=== PATIENT | female | born 1945 | race Caucasian/White ===

== ENCOUNTER → 2018-02-14 | Outpatient (CLI) | payer OTHER ==
[~2018-02-14] MED LIST: COMBIGAN EYE DR10 ML OP; LEVAQUIN 500 M500 MG PO; LEVOTHYROXINE 0.1 MG PO; LISINOPRIL10 MG PO
== END ==
LOC: M.ULTRA 02-08 11:34
DX: E04.2 Nontoxic multinodular goiter (principal); I65.23 Occlusion and stenosis of bilateral carotid arteries; I25.10 Atherosclerotic heart disease of native coronary artery without angina pectoris

== ENCOUNTER 2019-11-21 18:03 | Inpatient (IN) | payer OTHER ==
[~2019-11-21] VITALS: Ht 165.1 cm; Wt 87.4 kg
[2019-11-21 18:08] VITALS: BP 182/133
[2019-11-21] MEDS ORDERED: CELEXA 10 MG TA10 M1 PO (18:12)
[2019-11-21] MEDS ORDERED: TRAVATAN Z5 ML OPHTHALMIC (18:13)
[2019-11-21] MEDS ORDERED: CRANBERRY200 MG PO (18:13)
[2019-11-21 18:26] LABS: ABSOLUTE BASOPHILS 0.1 thou/uL (0.0-0.2); ABSOLUTE EOSINOPHILS 0.2 thou/uL (0.0-0.7); ABSOLUTE LYMPHOCYTES 3.3 thou/uL (0.8-5.3); ABSOLUTE MONOCYTES 0.8 thou/uL (0.0-1.2); ABSOLUTE NEUTROPHILS 4.2 thou/uL (1.6-8.1); BASOPHILS 0.7 %; EOSINOPHILS 2.5 %; HEMATOCRIT 39.5 % (37.0-47.0); HEMOGLOBIN 13.5 gm/dL (12.0-15.0); LYMPHOCYTES 37.9 %; MCH 29.3 pg (26.0-34.0); MCHC 34.1 g/dL (28.0-37.0); MCV 85.9 fL (80.0-100.0); MONOCYTES 9.6 %; MPV 8.6 fl. (7.2-11.1); NUCLEATED RBCS 0 /100WBC; PLATELET COUNT* 352 thou/uL (150-400); POLYS 49.3 %; RBC 4.61 mil/uL (4.20-5.00); RDW-CV 13.9 % (10.5-14.5); WBC 8.6 thou/uL (4.0-11.0)
[2019-11-21 18:34] LABS: CALCIUM 8.8 mg/dL (8.5-10.1); CREATININE 0.8 mg/dL (0.6-1.3); POTASSIUM 3.6 mmol/L (3.5-5.1)
[2019-11-21 18:35] LABS: APTT 27.4 Seconds (25.0-31.3); PROTIME 10.5 Seconds (9.20-11.50)
[2019-11-21 18:44] LABS: ALBUMIN 4.1 g/dL (3.4-5.0); MAGNESIUM 1.6 mg/dL (1.8-2.4); TOTAL BILIRUBIN 0.2 mg/dL (<0.1-1.0); TOTAL PROTEIN 7.7 g/dL (6.4-8.2)
[2019-11-21 20:00] VITALS: BP 183/86
[2019-11-21 20:20] VITALS: BP 157/84
[2019-11-21 20:30] VITALS: BP 158/73
[2019-11-21] MEDS ORDERED: EUTHYROX125 MCG PO (21:09)
[2019-11-21] MEDS ORDERED: PRESERVISION A1 EAC2 PO (21:12)
[2019-11-21] MEDS ORDERED: SUPER THERAVIT1 EACH PO (21:12)
[2019-11-21] MEDS ORDERED: SLOW-MAG64 M1 PO (21:12)
[2019-11-21] MEDS ORDERED: PROPRANOLOL 1010 MG PO (21:15)
[2019-11-21 21:57] VITALS: BP 142/69
[2019-11-21 22:29] VITALS: BP 142/69
[2019-11-22] VITALS (7 sets, daily range): BP systolic 131–183; BP diastolic 55–86
[2019-11-22 09:14] LABS: CHOLESTEROL 201 mg/dL (<200); HDL CHOLESTEROL 47 mg/dL (>40); LDL CHOLESTEROL 138 mg/dL (<100); TC:HDL 4.3 Ratio (Not establshd); TRIGLYCERIDE 81 mg/dL (<150); VLDL 16 mg/dL (<40)
[2019-11-22 09:19] LABS: SERUM ASSESSMENT Clear
--- NOTE | 2019-11-22 13:25 | EKG ---
[place] [address] ELECTROCARDIOGRAM REPORT Name: BARRY NAVAS Room: [address] ADM IN .R.#: [id number] Admission: 11/21/19 Attend Phys: Woody Parks Discharge: Date of : 45 Date of Service: 11/21/19 1808 Report #: [id number] THIS REPORT FOR: //name// [facility] ED Test Date: 2019-11-21 Test Time: 18:08:31 Pat Name: BARRY NAVAS Department: Room: [facility] Gender: F Center Medical And Lab Director: : 1945 Requested By: Steve Valles Order Number: [id number] MD: Markell Zapata Measurements Intervals [place] Rate: 161 P: [place]: QRS: 82 QRSD: 88 T: -62 QT: 295 QTc: 483 Interpretive Statements Atrial fibrillation with rapid V-rate Borderline right axis deviation Repolarization abnormality, prob rate related Baseline wander in lead(s) V6 Compared to ECG 11/03/2016 12:44:20 Early repolarization now present Sinus rhythm no longer present Electronically Signed On 11-22-2019 13:23:46 CDT by Markell Zapata [email or web address] <ELECTRONICALLY SIGNED> By: Markell Zapata MD, FAC 11/22/19 1323 1808 1808 Markell Zapata MD, [facility] /EPI
--- NOTE | 2019-11-22 13:29 | EKG ---
[place] [address] ELECTROCARDIOGRAM REPORT Name: BARRY NAVAS Room: [address] ADM IN .R.#: [id number] Admission: 11/21/19 Attend Phys: Woody Parks Discharge: Date of : 45 Date of Service: 11/22/1936 Report #: [id number] THIS REPORT FOR: //name// [facility] Test Date: 2019-11-22 Test Time: 08:36:08 Pat Name: BARRY NAVAS Department: Room: [address] Gender: F Regional Sales Manager: : 1945 Requested By: Ellen Louise Order Number: [id number] Reading MD: Markell Zapata Measurements Intervals [place] Rate: 63 P: 57 FL: 178 QRS: 73 QRSD: 107 T: 40 QT: 426 QTc: 437 Interpretive Statements Sinus rhythm Electronically Signed On 11-22-2019 13:27:33 CDT by Markell Zapata [email or web address] <ELECTRONICALLY SIGNED> By: Markell Zapata MD, [facility] 11/22/19 1327 5 5 Markell Zapata MD, FACC /EPI
--- NOTE | 2019-11-22 14:29 | 2DMMODE ---
[place] [address] 2 D/M-MODE ECHOCARDIOGRAM Name: BARRY NAVAS Room: [address] IN [facility]#: [id number] Admission: 11/21/19 Attend Phys: Woody Parks Discharge: Date of : 45 Date of Service: 11/22/19 1427 Report #: [id number] THIS REPORT FOR: cc: Richmond Rivas John E. DO Liston, Michael J. MD [facility] ~ APPROVED REPORT Study performed: 11/22/2019 10:00:18 EXAM: Comprehensive 2D, Doppler, and color-flow Echocardiogram Patient Location: In-Patient Room #: [facility] Status: routine BSA: 1.95 HR: 63 bpm BP: 159/72 mmHg Rhythm: NSR Other Information Study Quality: Good Indications Atrial Fibrillation 2D Dimensions IVSd: 8.31 (7-11mm) LVOT Diam: 19.72 (18-24mm) LVDd: 48.65 mm PWd: 7.22 (7-11mm) Ascending Ao: 29.85 (22-36mm) LVDs: 28.40 (25-40mm) Aortic Root: 29.97 mm Volumes Left Atrial Volume (Systole) LA ESV Index: 30.40 mL/m2 Aortic Valve AoV Peak Virgil.: 1.63 m/s AO Peak Gr.: 10.65 mmHg LVOT Max P.77 mmHg AO Mean Gr.: 5.66 mmHg LVOT Mean P.72 mmHg LVOT Max V: 1.20 m/s AO V2 VTI: 37.96 cm LVOT Mean V: 0.75 m/s RENETTA (VTI): 2.31 cm2 LVOT V1 VTI: 28.74 [place] [address] 2 D/M-MODE ECHOCARDIOGRAM Name: BARRY NAVAS Room: [address]#: [id number] Admission: 11/21/19 Attend Phys: Woody Parks Discharge: Date of : 45 Date of Service: 11/22/19 1427 Report #: [id number] Mitral Valve E/A Ratio: 1.15 MV Decel. Time: 223.77 ms MV E Max Virgil.: 1.01 m/s MV PHT: 64.89 ms MVA (PHT): 3.39 cm2 TDI E/Lateral E': 7.77 E/Medial E': 7.21 Medial E' Virgil.: 0.14 m/s Lateral E' Virgil.: 0.13 m/s Pulmonary Valve PV Peak Virgil.: 1.09 m/s PV Peak Gr.: 4.73 mmHg Left Ventricle The left ventricle is normal size. There is normal LV segmental wall motion. There is normal left ventricular wall thickness. Left ventricular systolic function is normal. LVEF is 65-70%. Transmitral Doppler flow pattern suggests impaired LV relaxation. Right Ventricle The right ventricle is normal size. The right ventricular systolic function is normal. Atria Left atrium is mildly dilated. Right atrium is mildly dilated. Aortic Valve The aortic valve is normal in structure. No aortic regurgitation is present. There is no aortic valvular stenosis. Mitral Valve The mitral valve is normal in structure. Trace mitral regurgitation. No evidence of mitral valve stenosis. Tricuspid Valve The tricuspid valve is normal in structure. Unable to assess PA pressure. Trace tricuspid regurgitation. Pulmonic Valve The pulmonary valve is normal in structure. There is no pulmonic valvular regurgitation[place] [address] 2 D/M-MODE ECHOCARDIOGRAM Name: BARRY NAVAS Room: [address] IN [facility]#: [id number] Admission: 11/21/19 Attend Phys: Woody Parks Discharge: Date of : 45 Date of Service: 11/22/19 1427 Report #: [id number] The aortic root is normal in size. IVC is normal in size and collapses >50% with inspiration. Pericardium There is no pericardial effusion. <Conclusion> The left ventricle is normal size. There is normal left ventricular wall thickness. Left ventricular systolic function is normal. LVEF is 65-70%. Transmitral Doppler flow pattern suggests impaired LV relaxation. Left atrium is mildly dilated. Right atrium is mildly dilated. Trace mitral regurgitation. Unable to assess PA pressure. Trace tricuspid regurgitation. IVC is normal in size and collapses >50% with inspiration. <ELECTRONICALLY SIGNED> By: Cem Shin MD, FACC 11/22/19 1427 1427 1427 Cem Shin MD, FACC /INF
[2019-11-23] VITALS: BP 126/68
[2019-11-23 03:51] VITALS: BP 122/56
[2019-11-23] MEDS ORDERED: SYNTHROID112 MC1 PO (10:12)
[2019-11-23] MEDS ORDERED: SYNTHROID100 MC1 PO (10:20)
--- NOTE | 2019-11-23 10:58 | EKG ---
[place] [address] ELECTROCARDIOGRAM REPORT Name: BARRY NAVAS Room: [address] ADM IN .R.#: [id number] Admission: 11/21/19 Attend Phys: Woody Parks Discharge: Date of : 45 Date of Service: 11/23/1928 Report #: [id number] THIS REPORT FOR: //name// [facility] Test Date: 2019-11-23 Test Time: 08:28:42 Pat Name: BARRY NAVAS Department: Room: [address] Gender: F Bridge Repairer: : 1945 Requested By: Ellen Louise Order Number: [id number] Renetta MD: Markell Zapata Measurements Intervals [place] Rate: 60 P: 66 LA: 178 QRS: 82 QRSD: 112 T: 45 QT: 434 QTc: 434 Interpretive Statements Sinus rhythm Borderline intraventricular conduction delay Compared to ECG 11/22/2019 08:36:08 No significant changes Electronically Signed On 11-23-2019 10:57:21 CDT by Markell Zapata [email or web address] <ELECTRONICALLY SIGNED> By: Markell Zapata MD, [facility] 11/23/19 1057 7 Markell Zapata MD, [facility] /EPI
[2019-11-23] MEDS ORDERED: ELIQUIS5 MG PO (11:25)
[2019-11-23] MEDS ORDERED: CARDIZEM SR 60M60 MG PO (11:26)
[2019-11-23] MEDS ORDERED: FLECAINIDE ACET50 M2 PO (11:27)
[2019-11-23] MEDS ORDERED: COMBIGAN EYE DR10 ML OPHTHALMIC (11:29)
[2019-11-23 11:31] VITALS: BP 122/56
== END 2019-11-23 13:15 | disposition home or self-care (01) | DRG 309 ==
LOC: M.ERS 18:03 → M.TBA-ER 18:34 → M.2W 18:34
PROVIDERS: Emergency Medicine Emergency Medical Services; Registered Nurse; ADMIT Internal Medicine
DX: I48.0 Paroxysmal atrial fibrillation (principal); D68.69 Other thrombophilia; I10 Essential (primary) hypertension; E03.9 Hypothyroidism, unspecified; H40.9 Unspecified glaucoma; Z79.899 Other long term (current) drug therapy; Z79.01 Long term (current) use of anticoagulants

== ENCOUNTER → 2020-03-14 | Outpatient (CLI) | payer OTHER ==
[~2020-03-14] MED LIST changes: +CARDIZEM SR 60M60 MG PO; +CELEXA 10 MG TA10 M1 PO; +COMBIGAN EYE DR10 ML OPHTHALMIC; +CRANBERRY200 MG PO; +ELIQUIS5 MG PO; +EUTHYROX125 MCG PO; +FLECAINIDE ACET50 M2 PO; +PRESERVISION A1 EAC2 PO; +PROPRANOLOL 1010 MG PO; +SLOW-MAG64 M1 PO; +SUPER THERAVIT1 EACH PO; +SYNTHROID100 MC1 PO; +SYNTHROID112 MC1 PO; +TRAVATAN Z5 ML OPHTHALMIC
== END ==
LOC: M.ULTRA 10:28
PROVIDERS: ATTEND Registered Nurse
DX: I65.23 Occlusion and stenosis of bilateral carotid arteries (principal)

== ENCOUNTER → 2021-01-21 | Outpatient (CLI) | payer OTHER | LOC: M.RAD 10:36 | PROVIDERS: ATTEND Internal Medicine | DX: M47.26 Other spondylosis with radiculopathy, lumbar region (principal); M51.16 Intervertebral disc disorders with radiculopathy, lumbar region; M25.78 Osteophyte, vertebrae; I70.0 Atherosclerosis of aorta ==

== ENCOUNTER → 2021-04-24 | Emergency (ER) | payer OTHER ==
[~2021-04-24] VITALS: Ht 162.6 cm; Wt 88.0 kg
[~2021-04-24] MED LIST changes: +LUMIGAN5 ML OPHTHALMIC
[2021-04-24 13:59] LABS: ABSOLUTE BASOPHILS 0.1 thou/uL (0.0-0.2); ABSOLUTE EOSINOPHILS 0.1 thou/uL (0.0-0.7); ABSOLUTE LYMPHOCYTES 2.3 thou/uL (0.8-5.3); ABSOLUTE MONOCYTES 0.8 thou/uL (0.0-1.2); ABSOLUTE NEUTROPHILS 7.8 thou/uL (1.6-8.1); BASOPHILS 0.7 %; HEMATOCRIT 43.4 % (37.0-47.0); HEMOGLOBIN 14.7 gm/dL (12.0-15.0); LYMPHOCYTES 21.2 %; MCH 29.2 pg (26.0-34.0); MCV 85.9 fL (80.0-100.0); MONOCYTES 6.8 %; MPV 7.6 fl. (7.2-11.1); NUCLEATED RBCS 0 /100WBC; PLATELET COUNT* 448 thou/uL (150-400); POLYS 70.3 %; RBC 5.05 mil/uL (4.20-5.00); RDW-CV 13.9 % (10.5-14.5); WBC 11.1 thou/uL (4.0-11.0)
[2021-04-24 14:10] LABS: CALCIUM 9.3 mg/dL (8.5-10.1); CREATININE 0.8 mg/dL (0.6-1.3); POTASSIUM 4.3 mmol/L (3.5-5.1)
[2021-04-24 14:15] LABS: ALBUMIN 3.9 g/dL (3.4-5.0); TOTAL BILIRUBIN 0.3 mg/dL (<0.1-1.0); TOTAL PROTEIN 7.7 g/dL (6.4-8.2)
[2021-04-24 16:00] VITALS: BP 168/87
--- NOTE | 2021-04-25 11:49 | EKG ---
[place] [address] ELECTROCARDIOGRAM REPORT Name: BARRY NAVAS Room: [facility]#: [id number] Admission: 04/24/21 Attend Phys: Discharge: Date of : 45 Date of Service: 04/24/21 1326 Report #: [id number] THIS REPORT FOR: //name// [facility] ED Test Date: 2021-04-24 Test Time: 13:26:19 Pat Name: BARRY NAVAS Department: Room: Gender: Assistant Professor Of Nursing: [facility] 1945 Requested By: Justin Waters Order Number: [id number] MD: Chema Salinas Measurements Intervals [place] Rate: 105 P: [place]: QRS: 98 QRSD: 174 T: -24 QT: 332 QTc: 439 Interpretive Statements Atrial flutter Ventricular premature complex RBBB and LPFB Inferior infarct, age indeterminate Compared to ECG 11/23/2019 08:28:42 Ventricular premature complex(es) now present Left posterior fascicular block now present Right bundle-branch block now present Myocardial infarct finding now present Sinus rhythm no longer present Electronically Signed On 04-25-2021 11:49:03 CDT by Chema Salinas [email or web address] <ELECTRONICALLY SIGNED> By: Gary Salinas MD, [facility] 04/25/21 1149 1326 1326 Gary Salinas MD, [facility] /EPI
== END ==
LOC: M.ERS 13:16
PROVIDERS: Emergency Medicine
DX: I48.20 Chronic atrial fibrillation, unspecified (principal); Z20.822 Contact with and (suspected) exposure to COVID-19; I10 Essential (primary) hypertension; E03.9 Hypothyroidism, unspecified; Z79.899 Other long term (current) drug therapy

== ENCOUNTER → 2021-05-07 | Outpatient (CLI) | payer OTHER ==
[2021-05-07 12:28] LABS: CALCIUM 9.1 mg/dL (8.5-10.1); CREATININE 0.9 mg/dL (0.6-1.3); POTASSIUM 4.6 mmol/L (3.5-5.1)
== END ==
LOC: M.LAB 12:00
PROVIDERS: ATTEND Registered Nurse
DX: I10 Essential (primary) hypertension (principal)

== ENCOUNTER 2021-08-15 21:58 | Inpatient (IN) | payer OTHER ==
[~2021-08-15] VITALS: Ht 165.1 cm; Wt 88.0 kg
[2021-08-15 22:04] VITALS: BP 169/95
[2021-08-15 23:09] LABS: ABSOLUTE BASOPHILS 0.1 thou/uL (0.0-0.2); ABSOLUTE EOSINOPHILS 0.1 thou/uL (0.0-0.7); ABSOLUTE LYMPHOCYTES 3.2 thou/uL (0.8-5.3); ABSOLUTE NEUTROPHILS 6.8 thou/uL (1.6-8.1); BASOPHILS 0.6 %; EOSINOPHILS 1.3 %; HEMATOCRIT 41.9 % (37.0-47.0); LYMPHOCYTES 28.3 %; MCH 29.2 pg (26.0-34.0); MCHC 33.5 g/dL (28.0-37.0); MCV 86.9 fL (80.0-100.0); MONOCYTES 8.6 %; MPV 7.7 fl. (7.2-11.1); NUCLEATED RBCS 0 /100WBC; PLATELET COUNT* 451 thou/uL (150-400); POLYS 61.2 %; RBC 4.82 mil/uL (4.20-5.00); RDW-CV 13.4 % (10.5-14.5); WBC 11.1 thou/uL (4.0-11.0)
[2021-08-15 23:18] LABS: CREATININE 0.9 mg/dL (0.6-1.3); POTASSIUM 4.3 mmol/L (3.5-5.1)
[2021-08-15 23:23] LABS: ALBUMIN 3.8 g/dL (3.4-5.0); MAGNESIUM 1.7 mg/dL (1.8-2.4); TOTAL BILIRUBIN 0.3 mg/dL (<0.1-1.0); TOTAL PROTEIN 7.4 g/dL (6.4-8.2)
[2021-08-15 23:24] LABS: URINE BILIRUBIN NEGATIVE (Negative); URINE BLOOD NEGATIVE (Negative); URINE CLARITY CLEAR; URINE COLOR YELLOW; URINE GLUCOSE-RANDOM NEGATIVE (Negative); URINE KETONES TRACE (Negative); URINE LEUKOCYTES-REFLEX NEGATIVE (Negative); URINE NITRITE-REFLEX NEGATIVE (Negative); URINE PROTEIN NEGATIVE (Negative); URINE UROBILINOGEN 0.2 E.U./dl (0.2-1.0)
[2021-08-16 04:30] VITALS: BP 135/77
[2021-08-16 06:13] LABS: CALCIUM 9.2 mg/dL (8.5-10.1); CREATININE 0.8 mg/dL (0.6-1.3); MAGNESIUM 1.8 mg/dL (1.8-2.4); POTASSIUM 4.1 mmol/L (3.5-5.1)
[2021-08-16 08:00] VITALS: BP 146/80
--- NOTE | 2021-08-16 12:46 | EKG ---
[place] [address] ELECTROCARDIOGRAM REPORT Name: BARRY NAVAS Room: [address]#: [id number] Admission: 08/16/21 Attend Phys: Woody Parks Discharge: Date of : 45 Date of Service: 08/15/212206 Report #: [id number] THIS REPORT FOR: //name// [facility] ED Test Date: 2021-08-15 Test Time: 22:07:47 Pat Name: BARRY NAVAS Department: Room: [facility] Gender: F Hvac Commercial Salesperson: MARQUISE : 1945 Requested By: Kasia Martinez Order Number: [id number] MD: Chema Salinas Measurements Intervals [place] Rate: 104 P: [place]: QRS: 91 QRSD: 142 T: -11 QT: 375 QTc: 494 Interpretive Statements Atrial fibrillation Paired ventricular premature complexes RBBB and LPFB Compared to ECG 04/24/2021 13:26:19 Atrial flutter no longer present Myocardial infarct finding no longer present Electronically Signed On 08-16-2021 12:46:28 TURBO ELECTRIC OPERATOR by Chema Salinas [email or web address] <ELECTRONICALLY SIGNED> By: Gary Salinas MD, FAC 08/16/21 1246 06 06 Gary Salinas MD, [facility] /EPI
[2021-08-16 14:00] VITALS: BP 133/74
[2021-08-16 20:00] VITALS: BP 150/92
[2021-08-17] VITALS (20 sets, daily range): BP systolic 89–181; BP diastolic 34–98
--- NOTE | 2021-08-17 02:20 | NUR ---
PT RESTING QUIETLY WITH EYES CLOSED, STATES VERY LITTLE SLEEP LAST FEW NIGHTS. CARDIZEM INFUSING AT 5 MG/HR. TELEMETRY SHOWING SR WITH 1ST AVB, PAC AND INTERMITTENT A-FIB. DENIES SOA OR CHEST PAIN. UP TO BSC/BR INDEPENDENTLY.
[2021-08-17 04:24] LABS: HEMATOCRIT 41.2 % (37.0-47.0); HEMOGLOBIN 13.5 gm/dL (12.0-15.0); MCH 28.7 pg (26.0-34.0); MCHC 32.8 g/dL (28.0-37.0); MCV 87.7 fL (80.0-100.0); MPV 8.3 fl. (7.2-11.1); RBC 4.7 mil/uL (4.20-5.00); RDW-CV 13.4 % (10.5-14.5); WBC 9.2 thou/uL (4.0-11.0)
[2021-08-17 04:54] LABS: ALBUMIN 3.5 g/dL (3.4-5.0); CREATININE 0.9 mg/dL (0.6-1.3); MAGNESIUM 1.8 mg/dL (1.8-2.4); POTASSIUM 3.7 mmol/L (3.5-5.1); TOTAL BILIRUBIN 0.4 mg/dL (<0.1-1.0); TOTAL PROTEIN 6.8 g/dL (6.4-8.2)
--- NOTE | 2021-08-17 10:30 | EKG ---
[place] [address] ELECTROCARDIOGRAM REPORT Name: BARRY NAVAS Room: [address]#: [id number] Admission: 08/16/21 Attend Phys: Woody Parks Discharge: Date of : 45 Date of Service: 08/16/21 0008 Report #: [id number] THIS REPORT FOR: //name// [facility] ED Test Date: 2021-08-16 Test Time: 00:08:52 Pat Name: BARRY NAVAS Department: Room: [facility] Gender: F Remote Inpatient Coder: BETH : 1945 Requested By: Kasia Martinez Order Number: [id number] MD: Markell Zapata Measurements Intervals [place] Rate: 90 P: [place]: QRS: 100 QRSD: 136 T: -25 QT: 380 QTc: 465 Interpretive Statements Atrial tachycardia Nonspecific intraventricular conduction delay Compared to ECG 08/15/2021 22:07:47 Intraventricular conduction delay now present rate has slowed Right bundle-branch block no longer present Electronically Signed On 08-17-2021 10:30:04 VOCATIONAL TECHNICAL EDUCATION DIRECTOR by Markell Zapata [email or web address] <ELECTRONICALLY SIGNED> By: Markell Zapata MD, FAC 08/17/21 1030 0008 0008 Markell Zapata MD, FAC /EPI
--- NOTE | 2021-08-17 16:14 | NUR ---
Pt admitted to the hospital on 08/16/21 with A-Fib. Pt lives alone in a house with one step to enter. She was previously independent in ADL's and Mobility. No hx of HH/DME/SNF. Pt fills her prescriptions at the [facility] on [address] Pt saw her PCP approximately 1 month ago. Pt reports she does have DPOA paperwork and agreed to bring a copy to the hospital. CM to continue to follow for discharge planning.
--- NOTE | 2021-08-17 19:57 | NUR ---
AT 1900 VANCOMYCIN BEGUN PER PHARMACY ORDER. TO RUN 1 1/2 HOURS.
[2021-08-18] VITALS: BP 108/48
[2021-08-18 04:00] VITALS: BP 127/71
--- NOTE | 2021-08-18 05:01 | NUR ---
SLEPT WELL TONIGHT. ANXIOUS ABOUT BEING IN THE HOSPITAL. TELEMETRY CONT TO SHOW SR, POST CARDIOVERSION. DENIES SOA OR CHEST PAIN.
[2021-08-18 06:08] LABS: HEMATOCRIT 39.3 % (37.0-47.0); HEMOGLOBIN 13.1 gm/dL (12.0-15.0); MCH 28.8 pg (26.0-34.0); MCHC 33.3 g/dL (28.0-37.0); MCV 86.4 fL (80.0-100.0); RBC 4.54 mil/uL (4.20-5.00); RDW-CV 13.5 % (10.5-14.5)
[2021-08-18 06:55] LABS: ALBUMIN 3.3 g/dL (3.4-5.0); CALCIUM 8.8 mg/dL (8.5-10.1); CREATININE 0.9 mg/dL (0.6-1.3); MAGNESIUM 1.9 mg/dL (1.8-2.4); POTASSIUM 4.3 mmol/L (3.5-5.1); TOTAL BILIRUBIN 0.3 mg/dL (<0.1-1.0); TOTAL PROTEIN 6.3 g/dL (6.4-8.2)
[2021-08-18 08:00] VITALS: BP 160/75
--- NOTE | 2021-08-18 08:05 | CON ---
[address] [address] CONSULTATION Name: BARRY NAVAS Room: [address] IN .#: [id number] Admission: 08/17/21 Attend Phys: Estuardo Luo Discharge: Date of : 45 Report #: [id number] THIS REPORT FOR: cc: Chinyere Flood MD, Lin W. MD Biggs, F. Douglas MD [facility] ~ DATE OF CONSULTATION: 08/16/2021 CARDIOLOGY CONSULTATION HISTORY OF PRESENT ILLNESS: I was asked by Dr. Prasad, the hospitalist service, to see this 76-year-old white female in Cardiology consultation for evaluation and treatment of atrial fibrillation with a rapid ventricular response. This lady has a history of paroxysmal atrial fibrillation. It goes back several years. She has been on diltiazem, Eliquis and flecainide. She thinks about 3 or 4 days ago, she went into atrial fibrillation again. She was having shortness of breath episodes with some dizziness as well. She called her polymerization engineer and was told to increase her flecainide from 100 mg b.i.d. to 150 b.i.d. She did that, but persisted in having symptoms and finally came to the Emergency Room last night. She was found to be in atrial fibrillation with a rapid ventricular response. 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 She has been put on a diltiazem drip and her rate has been controlled, it is currently running 104. Initially when she came in, I believe her heart rate was 104. She does have right bundle branch block and left posterior fascicular block. Her axis is 91. Note her QTc today is 494 with a QT of 375 and her QRS is 142 milliseconds. She feels better now that her heart rate is controlled. She additionally is known to have a history of PACs, hypothyroidism and hypertension. She is also known to be hyponatremic at times and I believe she had a sodium she told me of 120 recently. I believe her sodium was 130 on this admission. She is on lisinopril, which can cause hyponatremia. She also had hypomagnesemia, although it was not very profound, her magnesium was 1.7. She is not having the shortness of breath or dizziness now. HOME MEDICATIONS: Levothyroxine 100 mcg daily, magnesium chloride 64 mg b.i.d., Eliquis 5 mg b.i.d., diltiazem, sustained release 120 mg daily, Combigan eyedrops daily, lisinopril 10 mg daily, flecainide 150 mg b.i.d., and Lumigan drops daily. She does note that she says her atrial fibrillation tends to occur with urinary tract infections. REVIEW OF SYSTEMS: Unremarkable. PAST MEDICAL HISTORY: As described above. ALLERGIES: [place] [address] CONSULTATION Name: BARRY NAVAS Room: [address] IN [facility]#: [id number] Admission: 08/17/21 Attend Phys: Estuardo Luo Discharge: Date of : 45 Report #: [id number] SOCIAL HISTORY: She does not smoke. She has minimal alcohol intake. She does not use illegal drugs. FAMILY HISTORY: Unremarkable. PHYSICAL EXAMINATION: GENERAL: She presents as a well-developed, well-nourished white female in no acute distress. VITAL SIGNS: Pulse was 103 and slightly irregular, blood pressure was 146/80, respirations 18 and regular, temperature was 36.8 and her O2 sat was 97% on room air. HEENT: Head is atraumatic. Eyes clear. NECK: Supple. There is no jugular venous distention or hepatojugular reflux. Thyroid is not enlarged. There is no adenopathy. SKIN: Warm and dry. Mucous membranes are moist. LUNGS: Clear to auscultation and percussion. HEART: Revealed normal first and second heart sounds. There is no S4, no S3, no murmurs, rubs, thrills, or heaves. The rhythm was slightly irregular. ABDOMEN: Soft, flat, nontender, no palpable masses, no organomegaly. EXTREMITIES: Reveal no cyanosis, clubbing or edema. NEUROLOGIC: The patient mentated normally, talked normally, moved all extremities normally. IMPRESSION: 1. Paroxysmal atrial fibrillation, now with atrial fibrillation with a rapid ventricular response that is coming under control on IV diltiazem. 2. Hyponatremia. 3. Hypomagnesemia. 4. Hypertension. 5. Hypothyroidism. 6. Premature atrial contractions. 7. Right bundle branch block with left anterior fascicular block. RECOMMENDATIONS: Continue the current regimen. She should be continued on her Eliquis. I would continue her on the IV Cardizem for now and continue her flecainide 150 mg b.i.d. Hopefully, she will convert on her own. If she does not convert on her own, she will have to be cardioverted. Thank you very much for asking me to see the patient. If there are any questions, please feel free to contact me. <ELECTRONICALLY SIGNED> By: Gary Salinas MD, [facility] 08/18/21 0805 1117 1717F. Chema Salinas MD, FACC /nt
[2021-08-18 12:27] VITALS: BP 148/86
--- NOTE | 2021-08-18 13:13 | EKG ---
[place] [address] ELECTROCARDIOGRAM REPORT Name: BARRY NAVAS Room: [address] ADM IN ..#: [id number] Admission: 08/17/21 Attend Phys: Woody Parks Discharge: Date of : 45 Date of Service: 08/18/21 0859 Report #: [id number] THIS REPORT FOR: //name// [facility] Test Date: 2021-08-18 Test Time: 08:59:52 Pat Name: BARRY NAVAS Department: Room: [address] Gender: F Manager Basketball: LORENZA : 1945 Requested By: Markell Zapata Order Number: [id number] Reading MD: Cem Shin Measurements Intervals [place] Rate: 65 P: 71 MS: 216 QRS: 78 QRSD: 142 T: 62 QT: 423 QTc: 440 Interpretive Statements Sinus rhythm Borderline prolonged MS interval Abnormal inferior Q waves Artifact in lead(s) I,III,aVR,aVL,aVF Compared to ECG 08/16/2021 00:08:52 Inferior Q waves now present Ectopic atrial tachycardia, unifocal no longer present Electronically Signed On 08-18-2021 13:12:52 JOB PLACEMENT SPECIALIST by Cem Shin [email or web address] <ELECTRONICALLY SIGNED> By: Cem Shin MD, [facility] 08/18/21 1312 0859 Cem Shin MD, [facility] /EPI
--- NOTE | 2021-08-18 14:48 | CARD ---
[address] [address] CARDIAC CATH REPORT Name: BARRY NAVAS Rosie Room: [address] IN [facility]#: [id number] Admission: 08/17/21 Attend Phys: Estuardo Luo Discharge: Date of : 45 Report #: [id number] THIS REPORT FOR: cc: Chinyere Flood MD, Lin W. MD Blick, David R. MD [facility] ~ cc: Chinyere Flood MD DATE OF SERVICE: 08/17/2021 TITLE OF PROCEDURE: Direct current cardioversion of atrial tachycardia. INDICATIONS: Cardioversion was requested for this patient with a history of atrial tachycardia. DESCRIPTION OF PROCEDURE: The patient was brought to the cardiac catheterization lab in the fasting state after having received Eliquis 5 mg orally. Cardioversion patches were applied in the anterior and posterior location. Informed consent was discussed with the patient and she agreed. Moderate sedation was accomplished by administration of total of 7 mg of Versed and 75 mg of fentanyl intravenously in divided doses. The patient was then cardioverted from atrial tachycardia to normal sinus rhythm by applying 50 joules of synchronized direct current energy. The patient was cardioverted from atrial tachycardia to a normal sinus rhythm. She tolerated the procedure well. She was transferred back to her monitored bed in stable condition. IMPRESSION: Successful direct current cardioversion of atrial tachycardia to a normal sinus rhythm. <ELECTRONICALLY SIGNED> By: Markell Zapata MD, [facility] 08/18/21 1448 1438 1928Daleta Zapata MD, [facility] /nt
[2021-08-18 20:00] VITALS: BP 173/79
[2021-08-19] VITALS: BP 144/77
[2021-08-19 04:00] VITALS: BP 175/74
--- NOTE | 2021-08-19 04:21 | NUR ---
PT ALERT ORIENED. UP AD ALIRIO TO BR IN ROOM. DEVELOPMENTAL SERVICES WORKER TRACING SB/SR. NO PAIN.
[2021-08-19 04:48] LABS: CHOLESTEROL 197 mg/dL (<200); HDL CHOLESTEROL 51 mg/dL (>40); LDL CHOLESTEROL 133 mg/dL (<100); SERUM ASSESSMENT Clear; TC:HDL 3.9 Ratio (Not establshd); TRIGLYCERIDE 69 mg/dL (<150); VLDL 14 mg/dL (<40)
[2021-08-19 08:11] VITALS: BP 163/84
[2021-08-19] MEDS ORDERED: SODIUM CHLORIDE1 G2 PO (09:12)
[2021-08-19] MEDS ORDERED: PACERONE 200 M200 M1 PO (09:12)
[2021-08-19 12:00] VITALS: BP 182/92
[2021-08-19 12:07] VITALS: BP 182/92
--- NOTE | 2021-08-19 13:34 | NUR ---
WENT OVER D/C PAPERWORK WITH PT. VERBALIZED UNDERSTANDING OF ALL INSTRUCTION WITH MEDICATIONS, FOLLOW UP, AND BLOOD THINNER PRECAUTIONS. IV AND TELE REMOVED. AWAITING PTS SON TO PICK HER UP.
--- NOTE | 2021-08-19 15:14 | EKG ---
[place] [address] ELECTROCARDIOGRAM REPORT Name: BARRY NAVAS Room: [address] IN [facility].#: [id number] Admission: 08/17/21 Attend Phys: Woody Parks Discharge: 08/19/21 Date of : 45 Date of Service: 08/19/21 0915 Report #: [id number] THIS REPORT FOR: //name// [facility] Test Date: 2021-08-19 Test Time: 09:15:28 Pat Name: BARRY NAVAS Department: Room: [address] Gender: F Cut Off Man: JORGE : 1945 Requested By: Markell Zapata Order Number: [id number] Reading MD: Markell Zapata Measurements Intervals [place] Rate: 61 P: 68 [place]: 209 QRS: 75 QRSD: 130 T: 38 QT: 428 QTc: 431 Interpretive Statements Sinus rhythm Left atrial enlargement Nonspecific intraventricular conduction delay Compared to ECG 08/18/2021 08:59:52 Intraventricular conduction delay now present Electronically Signed On 08-19-2021 15:14:02 INTERNET CAFE MANAGER by Markell Zapata [email or web address] <ELECTRONICALLY SIGNED> By: Markell Zapata MD, [facility] 08/19/21 1514 0915 0915 Markell Zapata MD, [facility] /EPI
--- NOTE | 2021-08-21 13:48 | NUR ---
Spoke with the patient by phone, states she is doing well but is still fatigued. She sees her primary next Wed. and will discuss any concerns she continues to have at that time. She talked about continuing to be SOA on the steps. Informed her sometimes it take awhile to get her stamina back. She has all her medications and knows to call the doctor if she has any concerns that she feels need to be addressed. She did not have any other questions for me at this time.
== END 2021-08-19 14:15 | disposition home or self-care (01) | DRG 309 ==
LOC: M.ERS 21:58 → M.2W 08-16 00:29 → M.TBA-ER 08-16 00:29 → M.2W 08-16 00:29
PROVIDERS: Emergency Medicine; Internal Medicine; Internal Medicine Cardiovascular Disease; ADMIT Internal Medicine; ATTEND Internal Medicine
PROC: 5A2204Z Restoration of Cardiac Rhythm, Single (ICD-10-PCS; principal; 2021-08-17)
DX: I47.1 Supraventricular tachycardia (principal); D68.69 Other thrombophilia; E87.1 Hypo-osmolality and hyponatremia; I10 Essential (primary) hypertension; Z20.822 Contact with and (suspected) exposure to COVID-19; E03.9 Hypothyroidism, unspecified; E83.42 Hypomagnesemia; I48.91 Unspecified atrial fibrillation; Z79.899 Other long term (current) drug therapy; Z79.01 Long term (current) use of anticoagulants